=== PATIENT | female | born 1940 | race Caucasian/White ===

== ENCOUNTER 2017-10-17 19:50 | Emergency (ER) | payer MEDICARE, BC ==
[~2017-10-17] VITALS: Ht 157.5 cm; Wt 68.5 kg
[2017-10-17] MEDS ORDERED: Tylenol #3 tab (300mg/30mg) ORAL ONE (20:45)
[2017-10-17] MEDS ORDERED: ACETAMINOPHEN-1 EAC1 ORAL (21:40)
[2017-10-17] MEDS ORDERED: IBUPROFEN600 MG ORAL (21:40)
[2017-10-17 21:45] VITALS: BP 144/85
--- NOTE | 2017-10-18 10:40 | Emergency Room Report ---
History of Present Illness General Chief Complaint: Lower Extremity Injury Source: Patient Present Illness HPI Patient presents with complaints of left knee pain She reports that she was getting a pedicure was sitting in a chair for extended period time Gila that she had developed some tingling in that left leg After standing and twisting she felt increased pain to the lateral knee Denies any pelvic pain denies any ankle pain and points mainly to the lateral aspect of the left knee for the discomfort She has no other complaints of neuropathy at this time or decreased sensation pain did have some mild radiation upward to the lateral thigh Allergies: Coded Allergies: CIPROFLOXACIN (Verified Allergy, Unknown, 10/17/17) Patient History Past Medical History: see triage record Pertinent Family History: none Last Menstrual Period: None Now: No Reviewed Nursing Documentation: PMH: Agreed, PSxH: Agreed Review of Systems All Other Systems: negative except mentioned in HPI Physical Exam Vital Signs Date Time Temp Pulse Resp B/P (MAP) Pulse Ox O2 Delivery O2 Flow Rate FiO2 10/17/17 19:55 98.3 72 16 144/85 98 Room Air 98.2 Sp02 EP Interpretation: reviewed, normal General Appearance: well appearing, no apparent distress Head: normocephalic, atraumatic Eyes: bilateral eye PERRL, bilateral eye EOMI ENT: normal pharynx Respiratory: lungs clear Cardiovascular #1: regular rate, rhythm, no edema Musculoskeletal: other - Patella is freely mobile some arthritic changes are noted clinically, negative for laxity, tender on the lateral aspect on left knee , Neurologic: alert, oriented x3, bite block maker III-XII nml as tested Skin: normal color, no rash, warm/dry Lymphatic: no adenopathy Medical Decision Making Diagnostic Impression: Primary Impression: knee sprain ER Course Given the patient's injury There is no signs of vascular pathology patient had imaging obtained which was negative for acute bony pathology Patient will likely require outpatient MRI for further evaluation of ligamental soft tissue changes We discussed possible brace however the patient has Josue wrap at home and will have close orthopedic follow-up Other X-Ray Diagnostic Results Other X-Ray Diagnostic Results : X-Ray ordered: Left knee # of Views/Limited Vs Complete: 3 View Indication: Pain EP Interpretation: Yes Interpretation: no dislocation, no soft tissue swelling, no fractures Impression: No acute disease Electronically Signed by: Steve Damon DO Last Vital Signs Date Time Temp Pulse Resp B/P (MAP) Pulse Ox O2 Delivery O2 Flow Rate FiO2 10/17/17 21:45 98.3 89 16 144/85 98 Room Air 208.9 Status: improved Disposition: HOME, SELF-CARE Condition: Improved Scripts Acetaminophen With Codeine (T#3) (TYLENOL #3 TAB*) Y Tab 1 TAB ORAL Q8H Y for For Pain, #7 TAB Prov: Steve Damon DO 10/17/17 Ibuprofen* (MOTRIN*) 600 Mg Tablet 600 MG ORAL Q8H Y for For Pain, #20 TAB 0 Refills Prov: Steve Damon DO 10/17/17 Referrals: NOT CHOSEN IPA/MD,REFERRING (PCP) Patient Instructions: Knee Sprain, [id number] Additional Instructions: Patient is provided with the discharge instructions notified to follow up with primary doctor in the next 2-3 days otherwise return to the er with any worsening symptoms. Please note that this report is being documented using DRAGON technology. This can lead to erroneous entry secondary to incorrect interpretation by the dictating instrument. Steve Damon DO Oct 18, 2017 10:40
--- NOTE | 2017-10-18 11:47 | Diagnostic Imaging Report ---
Indication: Pain Technique: XRAY Knee 3v LT Comparison: None Findings: There is no evidence of acute fracture or dislocation. Degenerative change of the knee is manifested by mild medial compartment joint space narrowing and marginal osteophyte formation. No suprapatellar joint effusion is identified. No radiopaque foreign body seen. Impression: Osteoarthrosis. No evidence of acute fracture or dislocation.
== END 2017-10-17 21:50 | disposition home or self-care (01) ==
LOC: EMR 21:00
DX: S83.92XA Sprain of unspecified site of left knee, initial encounter (principal); Z88.1 Allergy status to other antibiotic agents; X50.1XXA Overexertion from prolonged static or awkward postures, initial encounter; Y92.89 Other specified places as the place of occurrence of the external cause
CPT/HCPCS: 99284